=== PATIENT | female | born 1960 | race African-American/Black ===

== ENCOUNTER 2019-05-15 08:28 | Inpatient (IN) ==
[2019-05-15] MEDS ORDERED: TYLENOL PO ONE (08:53)
[2019-05-15 09:18] LABS: INFLUENZA A NEGATIVE (NEGATIVE); INFLUENZA B NEGATIVE (NEGATIVE)
--- NOTE | 2019-05-15 09:25 | Diag Imaging Result Doc PS360 ---
EXAM: CHEST-2 VIEWS - 05/15/2019 HISTORY: fever TECHNIQUE: Chest two views COMPARISON: 06/08/2015 FINDINGS: Heart size appears within normal limits. There is some tortuosity of the thoracic aorta. There is mild subsegmental atelectasis at the mid and lower lung on the left. Infrahilar markings appear mildly prominent on the lateral view, although this is less conspicuous on the PA view. There is no dense consolidation, pleural effusion, or pneumothorax identified. IMPRESSION: Mild prominence of infrahilar markings on the lateral view. Mild bronchopneumonia cannot be excluded. Electronically signed by Mj Alberts 05/15/2019 9:22 AM
[2019-05-15 09:35] LABS: URINE SOURCE CLEAN CATCH
[2019-05-15 09:37] LABS: BILIRUBIN URINE NEGATIVE (NEGATIVE); BLOOD URINE SMALL (NEGATIVE); COLOR YELLOW; GLUCOSE URINE 1000 mg/dL (NEGATIVE); KETONE URINE 10 mg/dL (NEGATIVE); LEUKOCYTES URINE NEGATIVE (NEGATIVE); NITRITE URINE NEGATIVE (NEGATIVE); PH URINE 5.5; PROTEIN URINE 50 mg/dL (NEGATIVE); SP GRAVITY URINE 1.034; TURBIDITY URINE HAZY (CLEAR); UROBILINOGEN URINE NORMAL (NORMAL)
[2019-05-15] MEDS ORDERED: MOTRIN PO ONE (10:08)
[2019-05-15] MEDS ORDERED: ROCEPHIN 1 GM in NS 50 ML IV ONE (10:33)
[2019-05-15] MEDS ORDERED: NS 1,000 ML IV ONE ×2 (10:34)
[2019-05-15] MEDS ORDERED: NS 600 ML IV ONE (10:35)
--- NOTE | 2019-05-15 10:44 | PROVIDER DOCUMENTATION ---
This chart was entered by Shirley Amaral Scribe, acting as scribe for Silvia Acosta MD. HPI-General Adult - General Chief Complaint: Flu Symptoms Stated Complaint: FEVER/SORE THROAT Time Seen by Provider: 05/15/19 08:40 Source: patient Allergies/Adverse Reactions: Patient Allergies Allergy/AdvReac Type Severity Reaction Status Date / Time Penicillins Allergy RASH Verified 06/08/15 22:05 Home Medications: Home Medication List Medication Instructions Recorded Confirmed Last Taken Type Albuterol Sulfate Inhaler 2 puff INH Q6H PRN PRN #1 inhaler 05/15/19 Unknown Rx [Ventolin Hfa] Azithromycin [Zithromax] 250 mg PO DAILY #6 tab 05/15/19 Unknown Rx Naproxen 500 mg PO BID #20 tab 05/15/19 Unknown Rx Prednisone 50 mg PO DAILY #5 tab 05/15/19 Unknown Rx - History of Present Illness -Gen Adult Nature of Presenting Problems: 58yof presents to ED cc fever, sore throat, back pain since yesterday. Pt denies N/V/D. Pt has hx of HTN. Location of Pain/Injury: reports: generalized Pain Radiation: reports: no radiation Quality of Pain: reports: aching Severity: reports: mild Onset/Duration: reports: 24 hours ago Timing: reports: still present Context/Activities at Onset: reports: light activity Modifying Factors: improves with: nothing Associated Symptoms: reports: back/neck pain (back), fever/chills, muscle aches Similar Symptoms Previously?: No Recently seen or treated by another doctor?: No Review of Systems - Adult - REVIEW OF SYSTEMS - ADULT Constitutional: reports: see HPI, chills, fever. denies: fatique Eyes: reports: no symptoms reported Ears, Nose, Mouth & Throat: reports: see HPI, throat pain (mild) Cardiovascular: reports: no symptoms reported Respiratory: reports: no symptoms reported Gastrointestinal: reports: see HPI. denies: diarrhea, nausea, vomiting Genitourinary: reports: no symptoms reported Musculoskeletal: reports: see HPI, back pain, muscle aches Integumentary: reports: no symptoms reported Neurological: reports: no symptoms reported Psychiatric: reports: no symptoms reported Endocrine: reports: no symptoms reported Hematologic/Lymphatic: reports: no symptoms reported Allergic/Immunologic: reports: no symptoms reported All Other Systems: Reviewed and Negative Past History - Adult - PAST MEDICAL HISTORY-ADULT Review of Records: reports: Nursing Assessment Review, Medications Reviewed, Social history reviewed & non-contributory. Major Childhood Illnesses: reports: denies history Cardiovascular: reports: denies history Respiratory: reports: denies history Gastrointestinal: reports: denies history Obstetrical/Gynecological: reports: denies history Genitourinary: reports: denies history Musculoskeletal: reports: denies history Neurological: reports: denies history Endocrine/Immune: reports: denies history Other Conditions: reports: denies history - PRIOR SURGERIES/PROCEDURES Surgical/Procedure History: reports: reviewed, not pertinent - IMMUNIZATION STATUS Childhood Immunizations: See Nurse Assessment Flu Vaccine: See Nurse Assessment - FAMILY HISTORY Family History: CVA/TIA - SOCIAL HISTORY Smoking: denies Physical Exam-General - PHYSICAL EXAM-ADULT Initial Vital Signs Reviewed: Yes - CONSTITUTIONAL General Appearance: appears well, alert, no apparent distress. negative: anxious, combative - EYES Eyes: PERRL/EOMI, pink conjunctivae. negative: photophobia - HEAD, EARS, NOSE, MOUTH & THROAT HENMT: normocephalic/atraumatic, moist mucous membranes. negative: angioedema - NECK Neck: supple, normal inspection - RESPIRATORY Respiratory: chest non-tender, lungs clear, normal breath sounds. negative: rhonchi, wheezing - CARDIOVASCULAR Cardiovascular: normal peripheral pulses, tachycardia. negative: bradycardia - GASTROINTESTINAL (ABDOMEN) Abdominal Exam: normal bowel sounds, non tender, soft. negative: guarding, rebound - MUSCULOSKELETAL Extremity: normal inspection, normal capillary refill. negative: deformity, swelling - SKIN Integumentary: normal color, warm/dry. negative: diaphoresis, jaundice, rash - PSYCHIATRIC Psych/Mental Status: normal mood/affect, oriented x 3. negative: anxious Progress - PLAN OF CARE/RESULTS Progress/Plan/Lab Results: Vital Signs - 8 hr 05/15/19 08:32 Temperature 102 F H Pulse Rate 126 H Respiratory Rate 18 Blood Pressure 173/83 O2 Sat by Pulse Oximetry 96 Laboratory Results - last 24 hr 05/15/19 08:35 Group A Strep Rapid NEGATIVE Orders Category Date Time Status NEWS Score 2-4:Order NEWS Lactate Series NOW Care 05/15/19 08:34 Active CHEST-2 VIEWS [RAD] Stat Exams 05/15/19 08:[address] Stat Lab 05/15/19 08:[address] Stat Lab 05/15/19 08:35 Received LACTATE, PLASMA [CHEM] Lab 05/15/19 09:00 Uncollected LACTATE, PLASMA [CHEM] Lab 05/15/19 12:00 Uncollected LACTATE, PLASMA [CHEM] Lab 05/15/19 15:00 Uncollected URINALYSIS [URINALYSIS] Stat Lab 05/15/19 09:00 Uncollected Acetaminophen [Tylenol] Med 05/15/19 08:53 Discontinued 1,000 mg PO NOW ONE - XRAY 1 XRAY: Bilateral XRAY Study: Chest Impression: See EMR Report (IMPRESSION: Mild prominence of infrahilar markings on the lateral view. Mild bronchopneumonia cannot be excluded. Electronically signed by Mj Alberts 05/15/2019 9:22 AM) Departure - Departure Date of Disposition Decision: 05/15/19 Time of Disposition Decision: 09:37 DIAGNOSIS: Bronchitis Sepsis Qualifiers: Sepsis type: sepsis due to unspecified organism Sepsis acute organ dysfunction status: unspecified Qualified Code(s): A41.9 - Sepsis, unspecified organism Disposition: HOME 01 Certified Medical Emergency: Emergent Condition: Good Additional Instructions: ED Follow Up Instructions: You have been treated by a care provider in the Emergency Department. These instructions are being provided to you so you can have an understanding of how to care for yourself upon discharge. Upon discharge from the Emergency Department, you are responsible for making arrangements for follow-up care by a physician of your choice. Take all prescribed medications as directed. Return to the Emergency Department immediately for any new or worsening symptoms. You may call the Physician Referral phone number at [phone] to obtain a list of Physicians who are taking new patients. Prescriptions: Naproxen 500 mg PO BID #20 tab Prescription Printed Prednisone 50 mg PO DAILY #5 tab Prescription Printed Albuterol Sulfate Inhaler [Ventolin Hfa] 2 puff INH Q6H PRN PRN #1 inhaler PRN Reason: wheezes Prescription Printed Azithromycin [Zithromax] 250 mg PO DAILY #6 tab Prescription Printed Referrals and Follow-Ups: [facility] [Primary Care Provider] - Work Excuses: Return to School/Parent Work Discharge Education: Acute Bronchitis, Adult - Critical Care Note This patient required my direct & personal management of CC.: Yes Total Time (mins): 31 Critical Care Statement: This patient required my direct personal management to treat or rule out processes, the absence of which, could potentiallly result in sudden, clinically significant life or limb threatening deterioration. Attestation - Physician/ TANIA Attestation Patient care was provided by Advanced Practice Provider:: No The physician spent face to face time with patient:: Yes Advanced Practice Provider documentation review:: Supervising physician onsite and consulted in the evaluation and care of this patient. The physician did have a face to face encounter with the patient. This chart was documented by the indicated scribe, (Shirley Amaral Scribe) and accurately reflects the services I performed and decisions made by me, Silvia Acosta MD, as attested by the provider's signature.
[2019-05-15 10:49] LABS: UR EPITHELIAL CELLS >10 /HPF (<10); URINE BACTERIA 1+ /HPF; URINE CASTS GRANULAR PRESENT; URINE WBC <10 /HPF (<10)
[2019-05-15 11:18] LABS: AGAP 16; ALBUMIN 4.4 g/dL (3.5-5.0); ALKALINE PHOSPHATASE 81 U/L (32-104); BUN 14 mg/dL (8-22); CALCIUM 8.8 mg/dL (8.8-10.2); CHLORIDE 98 mmol/L (98-107); COSMO 276; CREATININE 0.8 mg/dL (0.5-0.9); ESTIMATED GFR > 60; GLUCOSE 167 mg/dL (70-104); GOT 29 U/L (10-30); GPT 24 U/L (10-36); POTASSIUM 3.6 mmol/L (3.5-5.1); SODIUM 136 mmol/L (136-145); TCO2 21 mmol/L (25-35)
[2019-05-15 12:07] LABS: PTT 32.1 Seconds (22.3-41.8)
[2019-05-15 12:08] LABS: INR 0.98; PROTIME 13.5 Seconds (11.0-16.0)
[2019-05-15] MEDS ORDERED: TYLENOL PO PRN (12:11)
[2019-05-15] MEDS ORDERED: VANCOMYCIN IV PER PHARMACY MISC SCH (12:15)
[2019-05-15 12:39] LABS: BASO# 0.01 X1000 (0.0-0.2); BASO% 0.1 % (0.0-0.8); EOS# 0.01 X1000 (0.0-0.7); EOS% 0.1 % (0.0-10.0); HEMATOCRIT 37.9 % (37.0-47.0); HEMOGLOBIN 12.6 g/dL (12.0-16.0); IMM GRAN# 0.01 X1000 (0.0-0.04); IMM GRAN% 0.1 % (0.0-0.5); LYMPH# 0.77 X1000 (1.2-3.4); LYMPH% 9.6 % (20.5-51.1); MCH 27.9 PG (27-31); MCHC 33.2 g/dL (33-37); MONO# 0.69 X1000 (0.11-0.59); MONO% 8.6 % (1.7-9.3); MPV 10.3 FL (7.4-10.4); NEUT# 6.49 X1000 (1.4-6.5); NEUT% 81.5 % (42.2-75.2); PLT 205 X1000 (130-400); RBC 4.51 XMIL (4.2-5.4); RDW 13.6 % (11.5-14.5); WBC 7.98 X1000 (4.8-10.8)
[2019-05-15] MEDS ORDERED: VANCOMYCIN 1,900 MG in NS 500 ML IV ONE (13:00)
--- NOTE | 2019-05-15 14:05 | HISTORY AND PHYSICAL ---
PRIMARY CARE PROVIDER: No one. CHIEF COMPLAINT: Lower back pain and feeling like she was really hot. HISTORY OF PRESENT ILLNESS: Ms Tana Ortega is a 58-year-old female with a medical history of hypertension, who presented here with complaints of lower back pain and feeling like her whole body was hot with pins and needles. Also felt like she was going to pass out. She did have a cough but nonproductive. When she presented, her white blood cell count was normal but she did run a fever. The fever was up to 102.7. It is back down to normal now. Flu was negative. Strep was negative. She had elevated lactate. That has normalized since she has received IV fluid hydration and antibiotics. Imaging shows that she does have mild bronchopneumonia and maybe even a urinary tract infection, but she is asymptomatic with the urinary tract infection. PAST MEDICAL HISTORY: Hypertension. SURGICAL HISTORY: 1. section x1. 2. Bilateral tubal ligation. 3. Hysterectomy. SOCIAL HISTORY: She smoked less than a pack per day, started in her 30s but quit in 2014. She denies alcohol. Denies any illicit drug use. She has adult children. She works at [employer], tends to lift heavy supplies. FAMILY HISTORY: Her mother when she was 4. She did not know or father, but her grandfather at 75 from an OR. She had a brother who from diabetes and congestive heart failure. ALLERGIES: Penicillin causes rash. HOME MEDICATIONS: She was originally going to be discharged, so she is not on any home medications. REVIEW OF SYSTEMS: Fourteen point review of systems are complete and all were negative for those mentioned in above HPI. PHYSICAL EXAMINATION: VITAL SIGNS: First set of vital signs, her 1st temperature was a 102 degrees, she is down to 98.7 degrees, heart rate 94, respiratory rate 18, blood pressure 136/72, O2 saturation 96% on room air. GENERAL: Ms. Tana Ortega is a 58-year-old female. She is in no acute distress. She is able answer questions appropriately. HEENT: Atraumatic, normocephalic. Pupils equal, round, reactive to light. Extraocular movements intact. Mucous membranes are dry. NECK: Trachea midline. CARDIOVASCULAR: S1, S2. Regular rate and rhythm. No rubs, gallops, murmurs. No lower extremity edema. +2 dorsalis and radial pulses. Negative JVD or carotid bruits. PULMONARY: Clear to auscultation. Bilateral breath sounds. No accessory muscle use or work of breathing noted. GASTROINTESTINAL: Soft, nontender, nondistended. Positive bowel sounds x4. EXTREMITIES: Moves all extremities equally. Full range of motion. NEUROLOGIC: Alert and oriented x3. Follows commands. Sensory is intact. SKIN: Warm, dry, intact. LABORATORY DATA: White blood cells 7000, hemoglobin 12, hematocrit 37, platelet count 205,000. INR 0.98, PTT is 32.1. Sodium 136, potassium 3.6, BUN 14, creatinine 0.8, glucose 167, calcium 8.8. Bilirubin 0.50, AST 29, ALT 24, CK 161, troponin 6, albumin 4.4, lactate first was 3.1, down to 1.2. Urinalysis 50 protein, 1000 glucose, 10 ketones, small blood, 1+ bacteria. Influenza A and B negative. Group A strep negative. MICROBIOLOGY: Blood cultures have been ordered. IMAGING: Chest x-ray, mild prominence of infrahilar markings on the lateral view, mild bronchopneumonia could not be excluded. ASSESSMENT AND PLAN: 1. Bronchopneumonia with fever. Started on broad-spectrum antibiotics and got IV fluid hydration. She did have elevated lactate that quickly resolved. 2. Hypertension. Currently blood pressure stable. 3. Deep venous thrombosis prophylaxis. Sequential compression devices. 4. Possible urinary tract infection, although she is asymptomatic. Again, antibiotic should cover that. Dictated by CJ Alanis for Brett Khan MD cc: CJ Alanis MD
[2019-05-15] MEDS: SOLU-MEDROL IV SCH ×2 (14:21→20:15)
[2019-05-15] MEDS: XOPENEX NEB INH SCH ×3 (15:18→23:09)
[2019-05-15] MEDS: ATROVENT NEB INH SCH ×3 (15:18→23:09)
[2019-05-15 15:20] LABS: BASO# 0.01 X1000 (0.0-0.2); BASO% 0.2 % (0.0-0.8); HEMATOCRIT 35.7 % (37.0-47.0); HEMOGLOBIN 11.6 g/dL (12.0-16.0); IMM GRAN# 0.02 X1000 (0.0-0.04); IMM GRAN% 0.3 % (0.0-0.5); LYMPH# 0.84 X1000 (1.2-3.4); LYMPH% 14.2 % (20.5-51.1); MCH 27.4 PG (27-31); MCHC 32.5 g/dL (33-37); MCV 84.4 FL (81-99); MONO# 0.48 X1000 (0.11-0.59); MONO% 8.1 % (1.7-9.3); MPV 10.3 FL (7.4-10.4); NEUT# 4.55 X1000 (1.4-6.5); NEUT% 77.2 % (42.2-75.2); PLT 188 X1000 (130-400); RBC 4.23 XMIL (4.2-5.4); RDW 13.5 % (11.5-14.5)
--- NOTE | 2019-05-16 01:22 | HISTORY AND PHYSICAL ---
ADDENDUM: Patient seen and examined by myself. Full note dictated, discussed with nurse practitioner. Patient has pneumonia, fever and sepsis secondary to pneumonia. She has flu-like symptoms, although her flu is negative. We are going to admit to the hospital. Antibiotic, fluid, oxygen as needed. Breathing treatments as needed. We will follow her blood pressures, as they are elevated at 173/83. cc: Brett Khan MD
[2019-05-16] MEDS: ATROVENT NEB INH SCH ×5 (03:25→20:52)
[2019-05-16] MEDS: SOLU-MEDROL IV SCH ×3 (05:20→21:17)
[2019-05-16 06:24] LABS: AGAP 13; ALBUMIN 3.7 g/dL (3.5-5.0); ALKALINE PHOSPHATASE 64 U/L (32-104); BUN 12 mg/dL (8-22); CALCIUM 8.4 mg/dL (8.8-10.2); CHLORIDE 103 mmol/L (98-107); COSMO 278; CREATININE 0.6 mg/dL (0.5-0.9); ESTIMATED GFR > 60; GLUCOSE 178 mg/dL (70-104); GOT 33 U/L (10-30); GPT 32 U/L (10-36); POTASSIUM 3.9 mmol/L (3.5-5.1); SODIUM 137 mmol/L (136-145); TCO2 22 mmol/L (25-35); TOTAL PROTEIN 7.4 g/dL (6.3-8.3)
[2019-05-16 06:34] LABS: HEMATOCRIT 35.8 % (37.0-47.0); HEMOGLOBIN 11.3 g/dL (12.0-16.0); IMM GRAN# 0.01 X1000 (0.0-0.04); IMM GRAN% 0.2 % (0.0-0.5); LYMPH# 0.57 X1000 (1.2-3.4); MCHC 31.6 g/dL (33-37); MCV 85.4 FL (81-99); MONO# 0.28 X1000 (0.11-0.59); MONO% 4.4 % (1.7-9.3); MPV 9.7 FL (7.4-10.4); NEUT# 5.48 X1000 (1.4-6.5); NEUT% 86.4 % (42.2-75.2); PLT 178 X1000 (130-400); RBC 4.19 XMIL (4.2-5.4); WBC 6.34 X1000 (4.8-10.8)
[2019-05-16 06:50] LABS: LYMPHS 10 % (21-51); MONO 2 % (1-9); SEGS 88 % (42-75)
--- NOTE | 2019-05-16 08:39 | Diag Imaging Result Doc PS360 ---
CHEST-2 VIEWS - 05/16/2019 INDICATION: Pneumonia COMPARISON: 05/15/2019 FINDINGS: The lungs are normally expanded and clear. Heart size and mediastinal contours are normal. No pneumothorax or pleural effusion. IMPRESSION: Negative exam. Electronically signed by Drew Velasco 05/16/2019 8:37 AM
[2019-05-16] MEDS: VANCOMYCIN 1,500 MG in NS 250 ML IV SCH (09:18)
[2019-05-16] MEDS: XOPENEX NEB INH SCH ×5 (10:49→20:51)
[2019-05-16] MEDS: ROCEPHIN 1 GM in NS 50 ML IV SCH (11:50)
[2019-05-17] MEDS: XOPENEX NEB INH SCH ×4 (00:25→11:30)
[2019-05-17] MEDS: ATROVENT NEB INH SCH ×4 (00:25→11:30)
[2019-05-17] MEDS: VANCOMYCIN 1,500 MG in NS 250 ML IV SCH (02:00)
[2019-05-17] MEDS: SOLU-MEDROL IV SCH (04:08)
[2019-05-17 06:07] LABS: HEMATOCRIT 36.9 % (37.0-47.0); HEMOGLOBIN 11.8 g/dL (12.0-16.0); IMM GRAN# 0.02 X1000 (0.0-0.04); IMM GRAN% 0.2 % (0.0-0.5); LYMPH# 0.98 X1000 (1.2-3.4); LYMPH% 11.6 % (20.5-51.1); MCH 27.4 PG (27-31); MCV 85.6 FL (81-99); MONO# 0.31 X1000 (0.11-0.59); MONO% 3.7 % (1.7-9.3); NEUT# 7.12 X1000 (1.4-6.5); NEUT% 84.5 % (42.2-75.2); PLT 190 X1000 (130-400); RBC 4.31 XMIL (4.2-5.4); RDW 14.2 % (11.5-14.5); WBC 8.43 X1000 (4.8-10.8)
[2019-05-17 06:27] LABS: AGAP 14; ALBUMIN 3.8 g/dL (3.5-5.0); ALKALINE PHOSPHATASE 69 U/L (32-104); BUN 12 mg/dL (8-22); CALCIUM 8.8 mg/dL (8.8-10.2); CHLORIDE 101 mmol/L (98-107); COSMO 284; CREATININE 0.6 mg/dL (0.5-0.9); ESTIMATED GFR > 60; GLUCOSE 193 mg/dL (70-104); GOT 26 U/L (10-30); GPT 28 U/L (10-36); POTASSIUM 4.3 mmol/L (3.5-5.1); SODIUM 140 mmol/L (136-145); TCO2 24 mmol/L (25-35); TOTAL PROTEIN 7.6 g/dL (6.3-8.3)
[2019-05-17 07:40] VITALS: BP 150/86
[2019-05-17] MEDS: ROCEPHIN 1 GM in NS 50 ML IV SCH (08:05)
[2019-05-17] MEDS ORDERED: OMNICEF PO SCH (09:00)
[2019-05-17] MEDS ORDERED: DOXYCYCLINE PO SCH (09:00)
--- NOTE | 2019-05-17 13:04 | DISCHARGE SUMMARY ---
ADMISSION DATE: 05/15/2019 DISCHARGE DATE: 05/17/2019 ADMISSION DIAGNOSES: 1. Bronchopneumonia with fever. 2. Hypertension. 3. Possible urinary tract infection but asymptomatic. DISCHARGE DIAGNOSES: 1. Bronchopneumonia, improved. 2. Hypertension, stable. 3. Originally possible urinary tract infection, but there was no culture obtained and she was asymptomatic. CONSULTATIONS: None. SURGERIES AND PROCEDURES: None. HOSPITAL COURSE: Ms. Tana Ortega is a 58-year-old, -[place] female with a medical history of hypertension, complaining of lower back pain, it felt like her whole body was hot with pins and needles and felt like she was going to pass out. She had a cough that was nonproductive. White count was normal, but her fever did get up to 102.7 degrees. Flu was negative. Strep was negative. Lactate was up, but it had normalized after fluids and antibiotics and imaging showed she had bronchial pneumonia. Originally felt like there might be a UTI, but she was asymptomatic and she is stable. DISCHARGE VITAL SIGNS: Temperature 98.5 degrees, heart rate 78, respiratory rate 18, blood pressure 150/86, O2 saturation 97% on room air. DISCHARGE LAB DATA: White blood cells 8,000, hemoglobin 11, hematocrit 36, platelet count 190,000. Sodium 140, potassium 4.3, BUN 12, creatinine 0.6, glucose 193, calcium 8.8, bilirubin 0.20, AST 26, ALT 28, albumin 3.8. Her lactate trend was 3.1, then 1.2, then 2.6, and back down to 1.0. Again strep was negative and influenza A and B were negative. Blood cultures no growth. PERTINENT IMAGING: Chest x-ray on admission, mild prominence of infrahilar markings on the lateral view. Mild bronchopneumonia. Chest x-ray repeated on May 15, negative exam. DISCHARGE MEDICATIONS: 1. Omnicef 300 mg p.o. twice daily for 5 days. 2. Albuterol inhaler 2 puffs every 6 hours p.r.n. 3. A Medrol Dosepak. 4. Doxycycline 100 mg p.o. twice daily for 5 days. DISCHARGE DIET: Regular. DISCHARGE ACTIVITY: As tolerated. DISCHARGE PHYSICIAN FOLLOWUP: At the [facility]. DISCHARGE INSTRUCTIONS: If your condition changes, contact a physician and/or return to the emergency department. Changes may include, but not limited to, shortness of breath, increased fatigue, excessive bleeding, unexplained weight loss or gain, unmanageable pain, signs or symptoms of infection. DISCHARGE DISPOSITION: Home. Dictated by CJ Alanis for Brett Khan MD cc: CJ Alanis MD
--- NOTE | 2019-05-17 21:15 | DISCHARGE SUMMARY ---
ADMISSION DATE: 05/15/2019 DISCHARGE DATE: 05/17/2019 Patient presented to the hospital with a febrile illness, diagnosed with pneumonia, placed on antibiotics. Blood pressures remain stable. She was given steroids due to her wheezing. Symptoms improved. On discharge she is awake, alert, she has been afebrile for greater than 24 hours. She is having no difficulty breathing and therefore she will be discharged home. She is able to ambulate with no shortness of breath. cc: Brett Khan MD
--- NOTE | 2019-05-19 04:14 | PROGRESS NOTE ---
DATE: 05/16/2019 SUBJECTIVE: The patient [*]improving. She has not really been out of bed. OBJECTIVE: Vital signs: Temperature 100.2. [*] Pulse 108. Respiratory [*] General: The patient is pleasant. She is in no current respiratory distress. [*]Cardiovascular: Tachycardia. No murmurs. Chest: [*]wheezing. [*] Abdomen: Soft, obese. [*] ASSESSMENT: 1. Bronchopneumonia. Her fever is trending down. 2. Hypertension. PLAN: We are going to continue the patient in the hospital. [*]Tylenol [*] cc: Brett Khan MD
== END 2019-05-17 11:30 | disposition home or self-care (01) | DRG 195 ==
LOC: P.ED 08:28 → P.MEDSURG 12:34
PROVIDERS: ATTEND Family Medicine